=== PATIENT | female | born 1995 | race Caucasian/White ===

== ENCOUNTER 2019-06-08 10:37 | Inpatient (IN) | payer OTHER | END 2019-06-10 13:40 | disposition home or self-care (01) | LOC: J4W 06-09 01:22 → JER 10:37 → JERBED 13:21 ==

== ENCOUNTER 2021-04-11 09:13 | Emergency (ER) | payer OTHER ==
[2021-04-11 09:40] VITALS: BMI 18.1
[2021-04-11] MEDS ORDERED: SODIUM CHLORIDE 0.9% 1000 ML INFUS.BAG IV ONE (10:11)
[2021-04-11 10:38] LABS: BASO % 0.4 % (0-2.0); HEMATOCRIT 39.2 % (32.4-45.2); HEMOGLOBIN 13.6 GM/dL (10.7-15.3); LYMPH % 12.6 % (8-40); MCH 32.7 pg (25.7-33.7); MCHC 34.7 g/dl (32.0-36.0); MEAN PLT VOLUME 7.5 fl (7.5-11.1); MONO % 6.3 % (3.8-10.2); NEUT % 77.7 % (42.8-82.8); PLATELET COUNT 244 K/MM3 (134-434); RBC 4.17 M/mm3 (3.60-5.2); RDW 13.6 % (11.6-15.6)
[2021-04-11 10:54] LABS: ALBUMIN 3.9 g/dl (3.4-5.0)
[2021-04-11 10:57] LABS: CREATININE 0.7 mg/dL (0.55-1.3)
[2021-04-11 10:58] LABS: BILIRUBIN,TOTAL 0.6 mg/dL (0.2-1)
[2021-04-11 10:59] LABS: TOT PROT 7.8 g/dl (6.4-8.2)
[2021-04-11 12:41] LABS: URINE APPEARANCE CLEAR; URINE BILIRUBIN NEGATIVE (NEGATIVE); URINE COLOR YELLOW; URINE GLUCOSE (UA) NEGATIVE (NEGATIVE); URINE KETONE NEGATIVE (NEGATIVE); URINE LEUK ESTERASE NEGATIVE (NEGATIVE); URINE NITRITE NEGATIVE (NEGATIVE); URINE PROTEIN NEGATIVE (NEGATIVE); URINE UROBILINOGEN 0.2 mg/dL (0.2-1.0)
[2021-04-11 13:22] VITALS: BP 101/69; PULSE 72; TEMP 98.5
== END 2021-04-11 13:22 | disposition home or self-care (01) ==
LOC: JER 09:13
DX: G40.89 Other seizures (principal)
CPT/HCPCS: 36415; 80053; 81003; 84703; 85025; 99283-25

== ENCOUNTER 2023-03-12 18:38 | Emergency (ER) | payer OTHER ==
[2023-03-12 18:46] VITALS: BP 112/63; PULSE 74; RESP 18; TEMP 99; BMI 19.8
[2023-03-12] MEDS ORDERED: SODIUM CHLORIDE 0.9% 500 ML INFUS.BAG IV ONE (20:25)
[2023-03-12] MEDS ORDERED: ACETAMINOPHEN 1000 MG/100 ML BAG IVPB ONE (20:25)
[2023-03-12] MEDS ORDERED: ACETAMINOPHEN INJECTION 100 ML IVPB ONE (20:38)
[2023-03-12 20:57] LABS: BASO % 0.4 % (0-2.0); EOS % 5.3 % (0-4.5); HEMOGLOBIN 12.2 GM/dL (10.7-15.3); MCH 30.8 pg (25.7-33.7); MCHC 33.8 g/dl (32.0-36.0); MEAN CELL VOLUME 91.2 fl (80-96); MEAN PLT VOLUME 7.9 fl (7.5-11.1); MONO % 9.2 % (3.8-10.2); NEUT % 46.1 % (42.8-82.8); PLATELET COUNT 207 10^3/uL (134-434); RBC 3.95 M/mm3 (3.60-5.2); RDW 13.7 % (11.6-15.6); WHITE BLOOD COUNT 5.7 K/mm3 (4.0-10.0)
[2023-03-12 21:19] LABS: POTASSIUM 3.9 mmol/L (3.5-5.1)
[2023-03-12 21:22] LABS: CALCIUM 8.9 mg/dL (8.5-10.1)
[2023-03-12 21:23] LABS: ALBUMIN 3.5 g/dl (3.4-5.0)
[2023-03-12 21:26] LABS: CREATININE 0.7 mg/dL (0.55-1.3)
[2023-03-12 21:27] LABS: BILIRUBIN,TOTAL 0.2 mg/dL (0.2-1); TOT PROT 7.7 g/dl (6.4-8.2)
[2023-03-12 21:28] LABS: URINE APPEARANCE CLEAR; URINE BILIRUBIN NEGATIVE (NEGATIVE); URINE COLOR YELLOW; URINE GLUCOSE (UA) NEGATIVE (NEGATIVE); URINE KETONE TRACE (NEGATIVE); URINE LEUK ESTERASE NEGATIVE (NEGATIVE); URINE NITRITE NEGATIVE (NEGATIVE); URINE PROTEIN NEGATIVE (NEGATIVE)
[2023-03-12 22:00] LABS: HCG,QUALITATIVE URINE Negative
[2023-03-12] MEDS ORDERED: LIDOCAINE PATCH REMOVAL MC SCH (22:00)
[2023-03-12] MEDS ORDERED: LIDOCAINE 5% TOPICAL PATCH TP ONE (22:02)
[2023-03-12] MEDS ORDERED: LIDOCAINE 5% TOPICAL PATCH ONE (22:30)
[2023-03-12 22:33] LABS: BLOOD UREA NITROGEN 8.7 mg/dL (7-18)
[2023-03-13] MEDS ORDERED: ONDANSETRON 4 MG/2 ML VIAL IVPUSH ONE (00:10)
[2023-03-13] MEDS ORDERED: FAMOTIDINE 20 MG/50 ML IVPB 20 MG/50 ML MG IVPB ONE (00:10)
== END 2023-03-13 01:12 | disposition home or self-care (01) ==
LOC: JER 18:38
PROC: 3E033NZ Introduction of Analgesics, Hypnotics, Sedatives into Peripheral Vein, Percutaneous Approach (ICD-10-PCS; principal; 2023-03-12)
DX: R11.2 Nausea with vomiting, unspecified (principal); R10.13 Epigastric pain; M54.50 Low back pain, unspecified
CPT/HCPCS: 36415; 76705-TC; 80053; 81003; 83690; 84703; 85025; 99284-25